=== PATIENT | male | born 1970 | race African-American/Black ===

== ENCOUNTER 2021-01-10 18:34 | Emergency (ER) | payer OTHER, SELFPAY ==
[~2021-01-10] VITALS: Ht 175.3 cm; Wt 87.3 kg
[~2021-01-10 18:34] MED LIST: NO MEDS
[2021-01-10] MEDS: AMOX TR/POT CLAV 875 MG/125 MG TABLET PO ONE (21:09)
[2021-01-10] MEDS: PERTUSS(ACELL),DIPH,TET VAC/PF 0.5 ML SYRINGE IM. ONE (21:11)
[2021-01-10 21:20] VITALS: BP 138/75
== END 2021-01-10 21:20 | disposition home or self-care (01) ==
LOC: EMS 18:34
DX: S81.832A Puncture wound without foreign body, left lower leg, initial encounter (principal); F12.90 Cannabis use, unspecified, uncomplicated; W54.0XXA Bitten by dog, initial encounter; Y93.89 Activity, other specified; Y92.89 Other specified places as the place of occurrence of the external cause; Y99.8 Other external cause status
CPT/HCPCS: 90471; 90715; 99283